=== PATIENT | female | born 1955 | race Caucasian/White ===

== ENCOUNTER → 2017-08-04 08:34 | Outpatient (CLI) | payer MEDICARE, SELFPAY ==
[2017-08-04 10:02] LABS: Alanine Aminotransferase 27 IU/L (9-52); Albumin 3.9 g/dL (3.5-5.0); Albumin Globulin Ratio 1.3 (1.0-2.8); Alkaline Phosphatase 107 U/L (38-126); Aspartate Aminotransferase 20 IU/L (14-36); BUN Creatinine Ratio 22.9 (6-22); Bilirubin Total 0.8 mg/dL (0.2-1.3); Blood Urea Nitrogen 16 mg/dL (7-17); Calcium 9.1 mg/dL (8.4-10.2); Carbon Dioxide 28 mmol/L (22-32); Chloride 104 mmol/L (98-107); Cholesterol 177 mg/dL (140-199); Estimated Glomerular Filt Rate > 60.0 mL/min (>60); Globulin 3.1 g/dL (1.7-4.1); Glucose 98 mg/dL (80-110); HDL Cholesterol 48 mg/dL (40-60); HEMOLYSIS < 15 (0-50); LDL Cholesterol Calculated 98 mg/dL (<100); Potassium 4.2 mmol/L (3.4-5.1); Sodium 142 mmol/L (137-145); Triglycerides 153 mg/dL (35-150)
[2017-08-04 10:12] LABS: Free T3, Triiodothyronine Free 3.81 pg/mL (2.77-5.27); Free T4, Direct Thyroxine 0.99 ng/dL (0.78-2.19)
[2017-08-04 10:26] LABS: Thyroid Stimulating Hormone 1.83 uIU/mL (0.47-4.68)
== END ==
PROVIDERS: PCP Family Medicine; Visit Provider Family Medicine
DX: E78.5 Hyperlipidemia, unspecified (principal); E07.9 Disorder of thyroid, unspecified
CPT/HCPCS: 36415; 80053; 80061; 84439; 84443; 84481

== ENCOUNTER → 2018-10-26 06:51 | Outpatient (CLI) | payer MEDICARE, SELFPAY ==
[2018-10-26 08:25] LABS: Alanine Aminotransferase 23 IU/L (9-52); Albumin 4.3 g/dL (3.5-5.0); Albumin Globulin Ratio 1.4 (1.0-2.8); Alkaline Phosphatase 101 U/L (38-126); Aspartate Aminotransferase 23 IU/L (14-36); BUN Creatinine Ratio 26.3 (6-22); Bilirubin Total 0.9 mg/dL (0.2-1.3); Blood Urea Nitrogen 21 mg/dL (7-17); Calcium 9.6 mg/dL (8.4-10.2); Carbon Dioxide 28 mmol/L (22-32); Chloride 105 mmol/L (98-107); Cholesterol 174 mg/dL (140-199); Estimated Glomerular Filt Rate > 60.0 mL/min (>60); Globulin 3.1 g/dL (1.7-4.1); Glucose 104 mg/dL (80-110); HDL Cholesterol 52 mg/dL (40-60); HEMOLYSIS < 15 (0-50); LDL Cholesterol Calculated 101 mg/dL (<100); Potassium 4.1 mmol/L (3.4-5.1); Sodium 140 mmol/L (137-145); Total Protein 7.4 g/dL (6.3-8.2); Triglycerides 105 mg/dL (35-150)
[2018-10-26 09:17] LABS: Free T3, Triiodothyronine Free 4.14 pg/mL (2.77-5.27)
[2018-10-26 09:30] LABS: Thyroid Stimulating Hormone 3.14 uIU/mL (0.47-4.68)
== END ==
PROVIDERS: PCP Family Medicine; Visit Provider Family Medicine
DX: Z00.00 Encounter for general adult medical examination without abnormal findings (principal); M85.852 Other specified disorders of bone density and structure, left thigh; Z78.0 Asymptomatic menopausal state; F17.200 Nicotine dependence, unspecified, uncomplicated; E78.5 Hyperlipidemia, unspecified; Z82.62 Family history of osteoporosis; Z13.6 Encounter for screening for cardiovascular disorders; Z13.29 Encounter for screening for other suspected endocrine disorder
CPT/HCPCS: 36415; 77080; 80053; 80061; 84439; 84443; 84481

== ENCOUNTER → 2020-09-17 12:50 | Outpatient (CLI) | payer MEDICARE, SELFPAY ==
--- NOTE | 2020-09-17 | DI.RAD.S_ITS ---
PROCEDURE: FL SHOULDER INJECTION MR/CT LT INDICATIONS: CHRONIC LEFT SHOULDER PAIN COMPARISON: None. TECHNIQUE: The indications, alternatives, benefits, risks, and complications of the procedure were explained to the patient. Written informed consent was obtained and placed in the chart. The shoulder was examined fluoroscopically and a site for needle placement chosen for entry into the glenohumeral joint from an anterior approach. The skin was prepped and draped in a sterile fashion, and 1% lidocaine infiltrated from skin down to joint capsule. A spinal needle was inserted into the glenohumeral joint, and a small amount of iodinated contrast media injected to confirm intra-articular placement of the needle tip. This was followed by approximately 12 mL dilute solution of a gadolinium containing MR contrast agent. The needle was removed and a dressing was applied. The patient was given postprocedural instructions and sent to the MR suite for MR imaging. FINDINGS: A single fluoroscopic spot image demonstrates intra-articular location of injected iodinated contrast. IMPRESSION: Successful fluoroscopically guided administration of dilute Gadolinium solution into the shoulder joint for MR arthrogram. Dictated by: Joe Altamirano M.D. on 09/17/2020 at 16:24 Approved by: Joe Altamirano M.D. on 09/17/2020 at 16:24
--- NOTE | 2020-09-17 | DI.MRI.S_ITS ---
PROCEDURE: MR SHOULDER LT W CON INDICATIONS: CHRONIC LEFT SHOULDER PAIN TECHNIQUE: After the administration of 12 mL of dilute intra-articular Gadolinium contrast, oblique coronal T1 and T2 spin echo with fat saturation, oblique sagittal T1 spin echo with and without fat saturation, oblique sagittal T2 fast spin echo with fat saturation, axial T1 spin echo with fat saturation through the shoulder. COMPARISON: [facility], MR, SHOULDER WITHOUT CONTRAST, 08/04/2016, 7:06. FINDINGS: Rotator cuff: Postsurgical changes related to prior rotator cuff repair. There is partial-thickness bursal and articular sided defect , and thinned appearance of the supraspinatus tendon although this could be postoperative appearance. No full-thickness tear is seen. Infraspinatus tendinopathy with low-grade bursal and articular surface fraying. The teres minor appears grossly intact. Subscapularis tendon appears grossly intact. Leakage of injected gadolinium contrast material is seen in the subacromial-subdeltoid bursa although unclear if this represents pinpoint full thickness defect which is not well seen by MR versus postoperative appearance Bones and bursae: No bone marrow contusions or fractures. Mild acromioclavicular joint degeneration. Acromion demonstrates conventional anatomy, without an os acromiale. Capsule and soft tissues: Labrum: Incidentally noted sublabral foramen. No intrasubstance gadolinium signal intensity identified.. Biceps tendon: Long head of the biceps tendon intact. Rotator interval: Normal signal intensity. Coracohumeral ligament: Intact. IMPRESSION: Postsurgical changes related to prior rotator cuff repair. Thinned appearance of the supraspinatus tendon which could be postoperative versus recurrent partial thickness tear. Infraspinatus tendinopathy low-grade bursal and articular surface fraying. This could also be postsurgical appearance although please correlate clinically to exam findings. Leakage of injected gadolinium contrast material into the subacromial-subdeltoid bursa which could be related to a occult pinpoint full thickness perforation, or this could be postoperative appearance. No large full-thickness rotator cuff tear identified. Dictated by: Joe Altamirano M.D. on 09/17/2020 at 15:20 Approved by: Joe Altamirano M.D. on 09/17/2020 at 15:28
== END ==
PROVIDERS: PCP Family Medicine; Referring Provider Physician Assistant; Visit Provider Physician Assistant
DX: M25.512 Pain in left shoulder (principal); M19.012 Primary osteoarthritis, left shoulder
CPT/HCPCS: 23350; 73222; 77002

== ENCOUNTER → 2020-10-31 09:54 | Outpatient (CLI) | payer MEDICARE, SELFPAY ==
[2020-10-31 11:53] LABS: COVID19 -Nasal RAPID Negative (Negative)
== END ==
PROVIDERS: PCP Family Medicine; Visit Provider Specialist
DX: Z01.812 Encounter for preprocedural laboratory examination (principal); Z20.822 Contact with and (suspected) exposure to COVID-19
CPT/HCPCS: 87635; C9803

== ENCOUNTER 2020-11-01 08:31 | Day surgery (SDC) | payer MEDICARE, SELFPAY ==
--- NOTE | 2020-11-01 | PATH_ITS ---
[facility] Accession Number: [id number] . 01 Material submitted: . PART A: gastrointestinal site - GASTRIC BIOPSIES PART B: esophagus, E-G Junction - GE JUNCTION . 01 Clinical history: . EGD . 02 Diagnosis: A. Stomach, Biopsies: Antral mucosa with mild chronic gastritis. Negative for Helicobacter by immunohistochemistry. Negative for intestinal metaplasia. Negative for dysplasia and malignancy. . B. Gastroesophageal Junction, Biopsies: Squamocolumnar junctional mucosa with mild chronic inflammation. Negative for intestinal metaplasia by alcian blue stain. Negative for dysplasia and malignancy. . [facility] 11/07/2020 1623 Local . 02 Electronically signed: . Lilian Elias MD, Pathologist NPI- [id number] . 01 Gross description: . Part A: GASTRIC BIOPSIES: Received in formalin are multiple fragment(s) of dalton, soft tissue measuring 1.4 x 0.2 x 0.1 cm in aggregate submitted entirely in 1 cassette(s) Part B: GE JUNCTION: Received in formalin are 1 fragment(s) of dalton, soft tissue measuring 1.3 x 0.7 x 0.2 cm in aggregate submitted entirely in 1 cassette(s) /[facility]ES[facility] 11/02/2020 0442 Local . 02 Microscopic: . A. An immunohistochemical stain was performed to evaluate for Helicobacter organisms and is negative. The control stain showed appropriate reactivity. . B. An AB/PAS stain was performed to evaluate for intestinal metaplasia and is negative. The control stain showed appropriate reactivity. . * This test was developed and its performance characteristics determined by [employer]. It has not been cleared or approved by the U.[place]. Food and Drug Administration. The FDA has determined that such clearance or approval is not necessary. This test is used for clinical purposes. It should not be regarded as investigational or for research. . 02 Pathologist provided ICD-10: R10.10, R13.10 . 02 CPT . 389890, 287413, C45065, 299011 Performed at: 01 [facility] [address] [id number] MD Cholo Lopez MD Phone: [phone] Performed at: 02 [facility] [address] [place] [id number] MD Lilian Elias MD Phone: [phone]
[2020-11-01 08:51] VITALS: BP 127/73; PULSE 68; RESP 16; TEMP 36.2; O2SAT 100; BMI 34.3
[2020-11-01] MEDS: LACTATED RINGERS 1,000 ML 42 ML IV (09:18)
--- NOTE | 2020-11-01 10:35 | PM.PREOP ---
Pre-operative Note COVID-19 COVID-19 status: Negative Result date/Date tested (Pos, Neg/Pending): 10/31/20 Interval Note History & Physical reviewed/Exam performed by Physician: Yes Changes to H&P: No ASA Class (for procedural sedation): I
[2020-11-01] MEDS: LIDOCAINE 4% SOLN 50 ML 20 ML TOP (10:47)
[2020-11-01] MEDS: ONDANSETRON 4 MG/2 ML INJ IV (10:48)
[2020-11-01] MEDS: MIDAZOLAM 5 MG/5 ML VIAL IV (10:53)
--- NOTE | 2020-11-01 11:06 | P.OP.ENDO_ITS ---
Operative Date/Time/Diagnoses Date of procedure: 11/01/20 Time of procedure: 11:06 Pre-op diagnosis: Upper abdominal pain Post-op diagnosis: same (Superficial ulcers of the antrum. Duodenitis of the duodenal bulb. Hiatal hernia.) Procedure & Clinicians Study performed: EGD with cold biopsies Same procedure as scheduled: Yes Indications: Try to determine cause of patient's upper abdominal symptoms and swallowing issues. Surgeon: Troy Olguin Procedure Notes SCOAP/Timeout: Performed Procedure in detail: The patient had topical anesthetic applied to oropharynx. She was placed in the left lateral decubitus position and underwent IV sedation directed by the surgeon consisting of fentanyl and Versed. A bite block was inserted and the scope was advanced through it into the esophagus. The esophagus was unremarkable. GE junction was noted at 35 cm from the incisors. The patient had an apparent hiatal hernia. Measured about 4 cm in length. The stomach insufflated well. There were no lesions seen in the body, or at the incisura. In the pre-pyloric antrum there were superficial red and circular areas suggestive of superficial ulcers. Pyloric channel was narrowed but patent. The duodenal bulb had patches of obvious inflammation but no ulcers. The remainder of duodenum was unremarkable to the 4th part. Scope was brought back into the stomach and retroflexed. The proximal stomach had evidence of h iatal hernia with a superficial ulcer on the lip of tissue sliding in and out of it. The scope was straightened. Biopsies were taken in the gastric antrum. There was a little irregularity the of the GE junction I chose to biopsy the region. I suspect that will be benign however. The scope was Brought out through the esophagus. No other lesions were seen. The scope was removed and the patient tolerated the procedure well. Scope withdrawal time: Not applicable Sedation minutes: 11 Findings: gastric ulcer (Superficial antral ulcers), hiatal hernia and other findings (Duodenitis of the duodenal bulb) Specimen(s): other (Gastric biopsies and GE junction biopsies) Complications: none Post-procedure Recommendations: Start medication(s) (Omeprazole) Follow up: months (1) Disposition: PACU
[2020-11-01 11:07] VITALS: BP 104/60; PULSE 50; RESP 14; TEMP 36.1; O2SAT 100
[2020-11-01 11:12] VITALS: BP 111/68; PULSE 51; RESP 18; O2SAT 97
[2020-11-01 11:17] VITALS: BP 109/63; PULSE 51; RESP 16; O2SAT 99
[2020-11-01 11:22] VITALS: BP 127/74; PULSE 58; RESP 12; O2SAT 100
[2020-11-01 11:29] VITALS: BP 134/75; PULSE 55; RESP 14; TEMP 36.2; O2SAT 100
--- NOTE | 2020-11-01 16:14 | SUR.PHASEII ---
pt was discharged with her friend. Pt denies any complaints. No distress noted. No complaints voiced.
== END 2020-11-01 11:45 | disposition home or self-care (01) ==
PROVIDERS: PCP Family Medicine; Referring Provider Specialist; Visit Provider Specialist
PROC: 0DJ08ZZ Inspection of Upper Intestinal Tract, Via Natural or Artificial Opening Endoscopic (ICD-10-PCS; CPT 43235; principal; 2020-11-01 10:00)
DX: K25.9 Gastric ulcer, unspecified as acute or chronic, without hemorrhage or perforation (principal); K29.80 Duodenitis without bleeding; K44.9 Diaphragmatic hernia without obstruction or gangrene; K29.50 Unspecified chronic gastritis without bleeding; K92.89 Other specified diseases of the digestive system; R10.13 Epigastric pain; R13.14 Dysphagia, pharyngoesophageal phase; E03.9 Hypothyroidism, unspecified; M79.7 Fibromyalgia; F32.9 Major depressive disorder, single episode, unspecified; F41.9 Anxiety disorder, unspecified; F17.200 Nicotine dependence, unspecified, uncomplicated
CPT/HCPCS: 43239; 99152; J2250; J2405